=== PATIENT | male | born 1985 | race Caucasian/White ===

== ENCOUNTER 2017-06-20 20:43 | Emergency (ER) | payer OTHER ==
[~2017-06-20] VITALS: Ht 188 cm; Wt 131.6 kg
[~2017-06-20 20:43] MED LIST: FLOMAX0.4 MG PO; GLIPIZIDE10 MG PO; GLUCOPHAGE1000 MG PO; LANTUS 10100 UNITS/ SC; LIPITOR20 MG PO; LISINOPRIL10 MG PO; NAPROXEN500 MG PO; OXCARBAZEPINE600 MG PO; PERCOCET 5/31 TABLET PO; PERPHENAZINE8 MG PO; TORADOL10 MG PO
[2017-06-20 21:52] LABS: EOSINOPHIL (%) 2.8 % (0-5); EOSINOPHIL COUNT 0.2 K/uL (0-0.3); HEMATOCRIT 43.6 % (38.0-50.0); IMMATURE GRANULOCYTE COUNT 0.1 K/uL; INSTRUMENT ABS NEUTROPHIL CT 3.9 K/uL; LYMPHOCYTE COUNT 2.2 K/uL (1.0-2.8); MCH 30.6 PG (29.0-34.0); MCHC 35.6 G/DL (30.0-36.0); MCV 86.2 FL (86-99); MEAN PLAT.VOLUME 10.1 uM^3 (9.0-12.4); MONOCYTE (%) 6.7 % (3-12); MONOCYTE COUNT 0.5 K/uL (0-0.8); NEUTROPHIL (%) 57.2 % (45-76); NEUTROPHIL COUNT 3.9 K/uL (1.8-6.4); PLATELET COUNT 216 K/uL (156-360); RBC DIS.WIDTH-CV 13.4 % (11.8-14.6); RBC DIS.WIDTH-SD 41.5 % (39-53); RED BLOOD COUNT 5.06 M/uL (4.00-5.50); WHITE BLOOD COUNT 6.9 K/uL (4.1-10.2)
[2017-06-20 22:47] LABS: ANION GAP 13 MEQ/L (2-14); CHLORIDE 97 MEQ/L (99-109); POTASSIUM 4.4 MEQ/L (3.7-5.4); SAMPLE HEMOLYSIS CHECK 2; SAMPLE ICTERIC CHECK 0; SAMPLE LIPEMIA CHECK 1; SODIUM 133 MEQ/L (136-147)
[2017-06-20 22:52] LABS: GFR ESTIMATE (CALCULATED) > 59 mL/min/; GLUCOSE 351 mg/dL (70-99); UREA NITROGEN (BUN) 16 mg/dL (9-23)
[2017-06-21] MEDS ORDERED: CLEOCIN300 MG PO (01:35)
[2017-06-21 02:36] VITALS: BP 119/82
== END 2017-06-21 02:42 | disposition home or self-care (01) ==
LOC: EME 20:43
DX: L08.9 Local infection of the skin and subcutaneous tissue, unspecified (principal); L84 Corns and callosities; E11.65 Type 2 diabetes mellitus with hyperglycemia; Z79.4 Long term (current) use of insulin; I10 Essential (primary) hypertension; E78.5 Hyperlipidemia, unspecified
CPT/HCPCS: 80048; 83605; 85025; 99281; 99285; J7030

== ENCOUNTER 2017-08-13 17:21 | Observation (INO) | payer OTHER ==
[~2017-08-13] VITALS: Ht 188 cm; Wt 127.2 kg
[~2017-08-13 17:21] MED LIST changes: +CLEOCIN300 MG PO
[2017-08-13 18:13] LABS: HEMATOCRIT 39.2 % (38.0-50.0); MCH 29.9 PG (29.0-34.0); MCHC 34.4 G/DL (30.0-36.0); MCV 86.7 FL (86-99); PLATELET COUNT 240 K/uL (156-360); RBC DIS.WIDTH-CV 13.4 % (11.8-14.6); RBC DIS.WIDTH-SD 42.3 % (39-53); RED BLOOD COUNT 4.52 M/uL (4.00-5.50)
[2017-08-13 18:23] LABS: CHLORIDE 103 mEq/L (99-109); POTASSIUM 3.9 mEq/L (3.7-5.4); SODIUM 134 mEq/L (136-147)
[2017-08-13 18:26] LABS: GLUCOSE 163 mg/dL (70-99)
[2017-08-13 18:27] LABS: ANION GAP 8 MEQ/L (2-14)
[2017-08-13 18:28] LABS: TOTAL BILIRUBIN 1.3 mg/dL (0.0-1.0)
[2017-08-13 18:29] LABS: ALKALINE PHOSPHATASE 49 IU/L (3-129); GFR ESTIMATE (CALCULATED) > 59 mL/min/
[2017-08-13 18:30] LABS: UREA NITROGEN (BUN) 13 mg/dL (9-23)
[2017-08-13] MEDS ORDERED: LISINOPRIL20 MG PO (22:02)
[2017-08-13] MEDS ORDERED: ROSUVASTATIN CA40 MG PO (22:03)
[2017-08-13] MEDS ORDERED: AMOX TR-K CLV1 EAC4 PO (22:03)
[2017-08-13] MEDS ORDERED: METFORMIN HCL1000 MG PO (22:03)
[2017-08-13] MEDS ORDERED: LANTUS 3 M100 UNITS1 SC (22:04)
[2017-08-13 22:12] LABS: ERTH.SED.RATE 33 MM/HR (0-15)
[2017-08-13 23:21] VITALS: BP 129/68
[2017-08-14 00:06] LABS: POINT-OF-CARE METER ID UU13113774
[2017-08-14 05:48] LABS: POINT-OF-CARE METER ID UU13113725
[2017-08-14 06:49] LABS: BASOPHIL COUNT 0.1 K/uL (0-0.1); EOSINOPHIL (%) 3.3 % (0-5); EOSINOPHIL COUNT 0.2 K/uL (0-0.3); HEMATOCRIT 33.3 % (38.0-50.0); IMMATURE GRANULOCYTE (%) 0.5 % (0.0-0.7); INSTRUMENT ABS NEUTROPHIL CT 3.3 K/uL; MCH 29.6 PG (29.0-34.0); MCHC 33.6 G/DL (30.0-36.0); MCV 87.9 FL (86-99); MEAN PLAT.VOLUME 10.2 uM^3 (9.0-12.4); MONOCYTE (%) 10.3 % (3-12); MONOCYTE COUNT 0.7 K/uL (0-0.8); NEUTROPHIL (%) 52.8 % (45-76); NEUTROPHIL COUNT 3.3 K/uL (1.8-6.4); PLATELET COUNT 207 K/uL (156-360); RBC DIS.WIDTH-CV 13.7 % (11.8-14.6); RBC DIS.WIDTH-SD 44.1 % (39-53); RED BLOOD COUNT 3.79 M/uL (4.00-5.50); WHITE BLOOD COUNT 6.3 K/uL (4.1-10.2)
[2017-08-14 07:16] LABS: ANION GAP 6 MEQ/L (2-14); CHLORIDE 107 MEQ/L (99-109); GFR ESTIMATE (CALCULATED) > 59 mL/min/; GLUCOSE 125 mg/dL (70-99); SAMPLE HEMOLYSIS CHECK 0; SAMPLE ICTERIC CHECK 0; SAMPLE LIPEMIA CHECK 0; SODIUM 140 MEQ/L (136-147); UREA NITROGEN (BUN) 12 mg/dL (9-23)
[2017-08-14 08:00] VITALS: BP 110/55
[2017-08-14 12:51] LABS: POINT-OF-CARE METER ID UU13113725
[2017-08-14 15:56] LABS: POINT-OF-CARE METER ID UU13113725
[2017-08-14 16:00] VITALS: BP 108/55
[2017-08-14 21:45] LABS: POINT-OF-CARE METER ID UU13113725
[2017-08-14 23:22] VITALS: BP 122/63
[2017-08-15 05:34] LABS: POINT-OF-CARE METER ID UU13113774
[2017-08-15 05:42] LABS: EOSINOPHIL (%) 3.7 % (0-5); EOSINOPHIL COUNT 0.2 K/uL (0-0.3); HEMATOCRIT 36.2 % (38.0-50.0); IMMATURE GRANULOCYTE (%) 0.6 % (0.0-0.7); INSTRUMENT ABS NEUTROPHIL CT 3.8 K/uL; LYMPHOCYTE COUNT 1.7 K/uL (1.0-2.8); MCH 29.6 PG (29.0-34.0); MCHC 33.7 G/DL (30.0-36.0); MCV 87.9 FL (86-99); MEAN PLAT.VOLUME 9.9 uM^3 (9.0-12.4); MONOCYTE (%) 7.1 % (3-12); MONOCYTE COUNT 0.4 K/uL (0-0.8); NEUTROPHIL (%) 61.2 % (45-76); NEUTROPHIL COUNT 3.8 K/uL (1.8-6.4); PLATELET COUNT 231 K/uL (156-360); RBC DIS.WIDTH-CV 13.5 % (11.8-14.6); RBC DIS.WIDTH-SD 43.6 % (39-53); RED BLOOD COUNT 4.12 M/uL (4.00-5.50); WHITE BLOOD COUNT 6.2 K/uL (4.1-10.2)
[2017-08-15 06:08] LABS: ANION GAP 7 MEQ/L (2-14); CHLORIDE 106 MEQ/L (99-109); GFR ESTIMATE (CALCULATED) > 59 mL/min/; GLUCOSE 135 mg/dL (70-99); POTASSIUM 4.1 MEQ/L (3.7-5.4); SAMPLE HEMOLYSIS CHECK 0; SAMPLE ICTERIC CHECK 0; SAMPLE LIPEMIA CHECK 0; SODIUM 140 MEQ/L (136-147); UREA NITROGEN (BUN) 11 mg/dL (9-23)
[2017-08-15 07:17] VITALS: BP 103/52
[2017-08-15 11:03] LABS: POINT-OF-CARE METER ID UU13113774
[2017-08-15 16:09] LABS: POINT-OF-CARE METER ID UU13113774
[2017-08-15 17:31] VITALS: BP 108/60
[2017-08-15 21:11] LABS: POINT-OF-CARE METER ID UU13113774
[2017-08-16 00:28] VITALS: BP 136/62
[2017-08-16 06:09] LABS: POINT-OF-CARE METER ID UU13113774
[2017-08-16 06:35] VITALS: BP 97/53
[2017-08-16 11:20] LABS: POINT-OF-CARE METER ID UU13113774
[2017-08-16 15:10] VITALS: BP 128/61
[2017-08-16 16:46] LABS: POINT-OF-CARE METER ID UU13113725
== END 2017-08-16 18:23 | disposition left against medical advice (07) ==
LOC: EME 17:21 → 5EAST 20:41 → EDOF 20:41 → ENRESERV 20:44 → 5EAST 21:48 → 5WEST 08-16 13:37 → ENRESERV 08-16 13:47 → 5EAST 08-16 18:23
PROVIDERS: Hospitalist; Nurse Practitioner Family; Student in an Organized Health Care Education/Training Program
PROC: 0JBR0ZZ Excision of Left Foot Subcutaneous Tissue and Fascia, Open Approach (ICD-10-PCS; principal; 2017-08-15)
DX: L03.116 Cellulitis of left lower limb (principal); E11.621 Type 2 diabetes mellitus with foot ulcer; B95.61 Methicillin susceptible Staphylococcus aureus infection as the cause of diseases classified elsewhere; L97.522 Non-pressure chronic ulcer of other part of left foot with fat layer exposed; Z79.4 Long term (current) use of insulin; S90.425A Blister (nonthermal), left lesser toe(s), initial encounter; I10 Essential (primary) hypertension; R26.2 Difficulty in walking, not elsewhere classified; Z83.3 Family history of diabetes mellitus; Z88.1 Allergy status to other antibiotic agents
CPT/HCPCS: 73630; 73720; 80048; 80053; 80202; 82948; 83605; 85025; 85027; 85651; 86140; 87040; 87070; 87075; 87076; 87077; 87147; 87186; 87205; 93971; 99281; 99285; G0378; J1650; J1815; J2270; J2543; J3370; J7030; J7050